=== PATIENT | male | born 1995 | race Two or more races ===

== ENCOUNTER 2016-07-14 21:29 | Emergency (ER) | payer SELFPAY ==
[~2016-07-14] VITALS: Ht 175.3 cm; Wt 81.6 kg
[2016-07-15] MEDS ORDERED: HYDROmorphone HCL 2 MG/ML VL ONE (00:08)
[2016-07-15] MEDS ORDERED: ONDANSETRON HCL 4 MG/2 ML VIAL ONE (00:08)
[2016-07-15] MEDS ORDERED: HYDROmorphone HCL 2 MG/ML VL IV ONE (00:30)
[2016-07-15] MEDS ORDERED: ONDANSETRON HCL 4 MG/2 ML VIAL IV ONE (00:30)
[2016-07-15 03:31] VITALS: BP 139/74
== END 2016-07-15 03:41 | disposition home or self-care (01) ==
LOC: ER 21:38
DX: S42.294A Other nondisplaced fracture of upper end of right humerus, initial encounter for closed fracture (principal); V00.311A Fall from snowboard, initial encounter; Y93.23 Activity, snow (alpine) (downhill) skiing, snowboarding, sledding, tobogganing and snow tubing; Y99.8 Other external cause status; Y92.89 Other specified places as the place of occurrence of the external cause
CPT/HCPCS: 73020; 73030; 96374; 96375; 99284; J1170; J2405